=== PATIENT | female | born 1955 | race Caucasian/White ===

== ENCOUNTER 2019-02-08 21:32 | Inpatient (IN) ==
--- OUTSIDE RECORDS SUMMARY | 2019-02-08 21:35 | External Medical Summary | Continuity of Care Document ---
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 Silas Ortiz Start: 07-Sep-2014 Quantity: 90 Refills: 3 Vitamin C 500 MG Oral Capsule; TAKE 1 CAPSULE DAILYSilas Mcmanus Start: 07-Sep-2014 Refills: 0 Venlafaxine HCl ER 150 MG Oral Tablet Ex tended Release 24 Hour; Take 1 tablet daily Silas Fall Start: 18-Nov-2014 Quantity: 90 Refills: 3 Claritin 10 MG Oral Tablet; TAKE 1 TABLET AT BEDTIME. Silas Fall Start: 02-Nov-2016 Quantity: 30 Refills: 5 Procedures History of Gallbladder Surgery Status: C ompleted History of Eye Surgery Status: Completed History of Section Status: Comp leted History of Hernia Repair Status: Complet ed Immunizations Tdap (Adacel) On: Mar-2012 Family History Father Family history of liver cancer (V16.0) (Z80.0) Status: Activ e Mother Family history of hypertension (V17.49) (Z82.49) Status: Act antwon Family history of Emphysema/COPD (492.8) (J43.9) Status: Act antwon Brother Family history of hypertension (V17.49) (Z82.49) Status: Act antwon Family history of Diabetes mellitus, controlled (250.00) (E1 1.9) Status: Active Social History - Smoking Status Never smoker Plan of Treatment Planned Observations Planned Goals not documented Results No Known Results Results not documented
--- NOTE | 2019-02-08 22:07 | CT Scan Report ---
CT head/brain wo con CLINICAL HISTORY: Stroke evaluation RIGHT-SIDED FACIAL DROOP COMPARISON STUDY: No previous studies for comparison. TECHNIQUE: Axial CT of the brain is performed from the vertex to the skull base. IV contrast was not administered for this examination. A dose lowering technique was utilized adhering to the principles of ALARA. CT DOSE: 537.48 mGy.cm FINDINGS: No intra or extra-axial mass lesions are visualized. There is no CT evidence of acute cortical infarc tion. There is no evidence of midline shift. There is no acute hemorrhage. No calvarial fractures ar e visualized. There are mild white matter hypodensities likely on a small vessel basis. There is no evidence of pathologic ventricular dilatation. There is no evidence of acute sinusitis. There is a small calcified right globe with an overlying imp lant. IMPRESSION: No acute intracranial findings Electronically signed by: Larry Casillas M.D. 02/08/2019 10:05 PM
[2019-02-08 22:19] LABS: Basophils # (auto) 0.05 K/uL (0-0.2); Basophils % (auto) 0.7 %; Eosinophils # (auto) 0.06 K/uL (0-0.5); Eosinophils % (auto) 0.8 %; Hematocrit (blood only) 38.1 % (37-47); Hemoglobin 13.2 g/dL (12.0-16.0); Immature Granulocytes # (auto) 0.01 K/uL (0.00-0.02); Immature Granulocytes % (auto) 0.1 %; Lymphocytes # (auto) 2.72 K/uL (1.2-3.4); Lymphocytes % (auto) 36.7 %; Mean Corpuscular Hgb Conc 34.6 g/dL (32-36); Mean Platelet Volume 10.3 fL (7.4-10.4); Monocytes # (auto) 0.65 K/uL (0.11-0.59); Monocytes % (auto) 8.8 %; Neutrophils # (auto) 3.93 K/uL (1.4-6.5); Neutrophils % (auto) 52.9 %; Platelet Count 239 K/uL (130-400); RDW Coefficient of Variation 13.8 % (11.5-14.5); RDW Standard Deviation 44.9 fL (36.4-46.3); Red Blood Count 4.33 M/uL (4.2-5.4); White Blood Count 7.42 K/uL (4.8-10.8)
[2019-02-08 22:28] LABS: Prothrombin Time 9.9 Seconds (9.0-12.0)
[2019-02-08 22:36] LABS: Alanine Aminotransferase 18 U/L (12-78); Albumin Level 3.2 gm/dl (3.4-5.0); Aspartate Aminotransferase 12 U/L (15-37); BUN Creatinine Ratio 11.6 (10-20); Blood Urea Nitrogen 14 mg/dl (7-18); Calcium 8.9 mg/dl (8.5-10.1); Carbon Dioxide 24 mmol/L (21-32); Chloride 108 mmol/L (98-107); Creatinine Clr Calc Pharmacy 43.6 ml/min; Est GFR (African American) 54.1; Est GFR (Non-African American) 46.6; Glucose 87 mg/dl (70-99); Magnesium 2.1 mg/dl (1.8-2.4); Potassium 3.9 mmol/L (3.5-5.1); Sodium 139 mmol/L (136-145)
[2019-02-08 22:40] LABS: Albumin Globulin Ratio 0.9 (0.9-2); Alkaline Phosphatase 106 U/L (45-117); Bilirubin,Total 0.2 mg/dl (0.2-1); Globulin 3.6 gm/dl (2.5-4.0); Total Protein 6.8 gm/dl (6.4-8.2); Troponin I < 0.015 ng/ml (0-0.045)
[2019-02-09] MEDS ORDERED: ASPIRIN CHEW 324 MG PO STA (00:03)
--- NOTE | 2019-02-09 00:29 | Emergency Department Note ---
Entered by Claudette Blackburn acting as a scribe for Ventura Jones MD History of Present Illness General Chief complaint: Neuro Symptoms/Deficit Stated complaint: BODY TINGLES ALL OVER, DIZZINESS, Time Seen by Provider: 02/08/19 21:47 Source: patient Limitations: no limitations History of Present Illness Provider complaint: neuro symptoms/deficit Onset (ago): hour(s) 1 Location: head Radiation: extremity (right arm) and other (face) Associated symptoms: + other (+right arm numbness, +slurred speech); no chest pain and no shortness of breath The patient is a 63 year old female who presents to the Emergency Room with complaints of neuro symptoms/deficit that began 1 hour prior to arrival and her last time known well was 2055. The patient states that she was got up to get water and when she went back to sit down her whole body started tingling. The patient states that she has right arm numbness and slurred speech. The patient denies ant chest pain or shortness of breath. Per son, the patient's face was drooped when he initially saw her. The patient denies a history of stroke, diabetes, or blood clots. The patient states that she has a history of eye cancer. Home Medications Home Medications Medication Instructions Recorded Confirmed Type pravastatin 20 mg PO QAM 02/08/19 02/08/19 History venlafaxine 150 mg PO QAM 02/08/19 02/08/19 History Allergies Allergy/AdvReac Type Severity Reaction Status Date / Time No Known Allergies Allergy Unverified 02/08/19 22:00 Past Med/Surg History Medical History Eye cancer Hyperlipidemia MDD (major depressive disorder) Surgical History H/O section S/P cholecystectomy Family History Other Diabetes Hypertension Social History Feels Safe at Home: Yes Smoking Status: Never smoker Review of Systems See HPI for pertinent positives & negatives. and A total of 10 systems reviewed and were otherwise negative Physical Exam Vital Signs Vital Signs - 24 hr 02/08/19 21:35 02/08/19 22:06 02/08/19 22:07 Temperature 36.7 C 36.6 C Temperature Source Oral Oral Sepsis Recent Fever Within 48 Hours No Sepsis New/Unexplained Change in Mental Status No Sepsis Action Taken by Nursing No Action Required Pulse Rate 99 H Pulse Rate [Apical] 84 Pulse Rate from SpO2 Sensor Pulse Rhythm Regular Pulse Rhythm [Apical] Pulse Strength Normal Respiratory Rate 20 18 Respiratory Effort / Characteristics Non-Labored Spontaneous Respiratory Depth Normal Respiratory Pattern Regular Blood Pressure 141/93 H Blood Pressure [Right Arm] 103/72 Blood Pressure Mean 109 Blood Pressure Mean [Right Arm] 82 Pulse Oximetry 99 95 95 Oxygen Delivery Method Room Air Room Air Room Air 02/08/19 22:16 02/08/19 22:47 02/08/19 23:50 Temperature Temperature Source Sepsis Recent Fever Within 48 Hours Sepsis New/Unexplained Change in Mental Status Sepsis Action Taken by Nursing Pulse Rate 78 Pulse Rate [Apical] 79 80 Pulse Rate from SpO2 Sensor 80 Pulse Rhythm Pulse Rhythm [Apical] Regular Regular Pulse Strength Respiratory Rate 14 14 16 Respiratory Effort / Characteristics Non-Labored Respiratory Depth Normal Normal Respiratory Pattern Blood Pressure 118/99 Blood Pressure [Right Arm] 137/86 142/95 H Blood Pressure Mean 105 Blood Pressure Mean [Right Arm] 103 110 Pulse Oximetry 94 93 95 Oxygen Delivery Method Room Air Room Air Room Air 02/09/19 00:12 Temperature Temperature Source Sepsis Recent Fever Within 48 Hours Sepsis New/Unexplained Change in Mental Status Sepsis Action Taken by Nursing Pulse Rate Pulse Rate [Apical] 93 H Pulse Rate from SpO2 Sensor Pulse Rhythm Pulse Rhythm [Apical] Regular Pulse Strength Respiratory Rate 16 Respiratory Effort / Characteristics Respiratory Depth Normal Respiratory Pattern Blood Pressure Blood Pressure [Right Arm] 123/74 Blood Pressure Mean Blood Pressure Mean [Right Arm] 90 Pulse Oximetry 92 Oxygen Delivery Method Room Air General: Non-ill appearing middle-aged female in no acute distress. HEENT: Normal cephalic atraumatic. Pupils are equal round and reactive to light. Artificial right eye. Extraocular movements are intact. Oropharynx is pink with moist mucous membranes. Missing most of anterior upper teeth and does not have her plate with her. Some facial asymmetry from previous facial surgery. Neck: Supple with a midline trachea. No meningeal signs or stiffness, no JVD or bruits. No Stridor. Chest: Clear to auscultation bilaterally. No wheezes or rhonchi. No increased work of breathing. Heart: regular rate and rhythm. Abdomen: Soft nontender, nondistended without rebound guarding or rigidity. Extremities: No cyanosis clubbing or edema. No calf tenderness or asymmetry Spine/Back. Non tender to palpation. No CVA tenderness Skin: Good turgor without rashes. Neurologic exam: Cranial nerves two through 12 are intact. Motor and sensation are intact and symmetrical throughout. Course 2147: The patient was evaluated in room B2, and a complete history and physical examination were performed. 2199:I reviewed the patient's case with Dr. Young who states that he will come examine the patient but states that he does not believe the patient will be a TPA candidate due to the patient's symptoms. 2229: I checked on the patient and updated her on her results. The patient looks good and comfortable. 0001: [facility] for further hospitalization. Consultations Consultation #1: Dr. Merrill [facility] Hospitalist Time: 00:01 Administered Medications Discontinued Medications Aspirin (Aspirin) 324 mg PO NOW STA Stop: 02/09/19 00:04 Last Admin: 02/09/19 00:11 Dose: 324 mg Documented by: [id number] Medical Decision Making Differential Diagnosis Differential Diagnosis: TIA, CVA, electrolyte or metabolic abnormality, infection. Medical Records Attestation: I reviewed the patient's medical records. Home Medications Current Medication List: was personally reviewed by me Laboratory Data Attestation: I reviewed the patient's lab results. Result diagrams: 02/08/19 22:09 02/08/19 22:09 Lab Results 02/08/19 02/08/19 02/08/19 Range/Units 21:49 22:09 22:09 WBC 7.42 (4.8-10.8) K/uL RBC 4.33 (4.2-5.4) M/uL Hgb 13.2 (12.0-16.0) g/dL Hct 38.1 (37-47) % MCV 88.0 (80-100) fL MCH 30.5 (25-34) pg MCHC 34.6 (32-36) g/dL RDW Std Deviation 44.9 (36.4-46.3) fL RDW Coeff of Melissa 13.8 (11.5-14.5) % Plt Count 239 (130-400) K/uL MPV 10.3 (7.4-10.4) fL Immature Gran % (Auto) 0.1 % Neut % (Auto) 52.9 % Lymph % (Auto) 36.7 % [place] % (Auto) 8.8 % Eos % (Auto) 0.8 % Baso % (Auto) 0.7 % Immature Gran # (Auto) 0.01 (0.00-0.02) K/uL Neut # (Auto) 3.93 (1.4-6.5) K/uL Lymph # (Auto) 2.72 (1.2-3.4) K/uL [place] # (Auto) 0.65 H (0.11-0.59) K/uL Eos # (Auto) 0.06 (0-0.5) K/uL Baso # (Auto) 0.05 (0-0.2) K/uL PT 9.9 (9.0-12.0) Seconds INR 1.0 (0.9-1.1) APTT 26.0 (21.0-31.0) Seconds PTT Ratio 1.0 Sodium (136-145) mmol/L Potassium (3.5-5.1) mmol/L Chloride (98-107) mmol/L Carbon Dioxide (21-32) mmol/L Anion Gap (3-11) BUN (7-18) mg/dl Creatinine (0.6-1.2) mg/dl Est Cr Clr Drug Dosing ml/min Est GFR ( Amer) Est GFR (Non-Af Amer) BUN/Creatinine Ratio (10-20) Glucose (70-99) mg/dl POC Glucose 82 (70-99) Calcium (8.5-10.1) mg/dl Magnesium (1.8-2.4) mg/dl Total Bilirubin (0.2-1) mg/dl AST (15-37) U/L ALT (12-78) U/L Alkaline Phosphatase (45-117) U/L Troponin I (0-0.045) ng/ml Total Protein (6.4-8.2) gm/dl Albumin (3.4-5.0) gm/dl Globulin (2.5-4.0) gm/dl Albumin/Globulin Ratio (0.9-2) Blood Type Antibody Screen 02/08/19 02/08/19 Range/Units 22:09 22:09 WBC (4.8-10.8) K/uL RBC (4.2-5.4) M/uL Hgb (12.0-16.0) g/dL Hct (37-47) % MCV (80-100) fL MCH (25-34) pg MCHC (32-36) g/dL RDW Std Deviation (36.4-46.3) fL RDW Coeff of Melissa (11.5-14.5) % Plt Count (130-400) K/uL MPV (7.4-10.4) fL Immature Gran % (Auto) % Neut % (Auto) % Lymph % (Auto) % [place] % (Auto) % Eos % (Auto) % Baso % (Auto) % Immature Gran # (Auto) (0.00-0.02) K/uL Neut # (Auto) (1.4-6.5) K/uL Lymph # (Auto) (1.2-3.4) K/uL [place] # (Auto) (0.11-0.59) K/uL Eos # (Auto) (0-0.5) K/uL Baso # (Auto) (0-0.2) K/uL PT (9.0-12.0) Seconds INR (0.9-1.1) APTT (21.0-31.0) Seconds PTT Ratio Sodium 139 (136-145) mmol/L Potassium 3.9 (3.5-5.1) mmol/L Chloride 108 H (98-107) mmol/L Carbon Dioxide 24 (21-32) mmol/L Anion Gap 8.0 (3-11) BUN 14 (7-18) mg/dl Creatinine 1.23 H (0.6-1.2) mg/dl Est Cr Clr Drug Dosing 43.6 ml/min Est GFR ( Amer) 54.1 Est GFR (Non-Af Amer) 46.6 BUN/Creatinine Ratio 11.6 (10-20) Glucose 87 (70-99) mg/dl POC Glucose (70-99) Calcium 8.9 (8.5-10.1) mg/dl Magnesium 2.1 (1.8-2.4) mg/dl Total Bilirubin 0.2 (0.2-1) mg/dl AST 12 L (15-37) U/L ALT 18 (12-78) U/L Alkaline Phosphatase 106 (45-117) U/L Troponin I < 0.015 (0-0.045) ng/ml Total Protein 6.8 (6.4-8.2) gm/dl Albumin 3.2 L (3.4-5.0) gm/dl Globulin 3.6 (2.5-4.0) gm/dl Albumin/Globulin Ratio 0.9 (0.9-2) Blood Type A Positive Antibody Screen NEGATIVE Imaging Data Radiologist's Impression: Radiology results as stated below per my review and the radiologist's interpretation: CT head/brain wo con CLINICAL HISTORY: Stroke evaluation RIGHT-SIDED FACIAL DROOP COMPARISON STUDY: No previous studies for comparison. TECHNIQUE: Axial CT of the brain is performed from the vertex to the skull base. IV contrast was not administered for this examination. A dose lowering technique was utilized adhering to the principles of ALARA. CT DOSE: 537.48 mGy.cm FINDINGS: No intra or extra-axial mass lesions are visualized. There is no CT evidence of acute cortical infarction. There is no evidence of midline shift. There is no acute hemorrhage. No calvarial fractures are visualized. There are mild white matter hypodensities likely on a small vessel basis. There is no evidence of pathologic ventricular dilatation. There is no evidence of acute sinusitis. There is a small calcified right globe with an overlying implant. IMPRESSION: No acute intracranial findings Electronically signed by: Larry Casillas M.D. 02/08/2019 10:05 PM ECG Data Attestation: I personally reviewed and interpreted this ECG as follows: Indication: other (stroke symptoms ) Rate (beats per minute): 83 Rhythm: normal sinus Findings: + other (low voltage) and + nonspecific-ST abn; no ST elevation and no acute ischemic change Blood Pressure Blood Pressure Findings: Normal blood pressure MDM Narrative This patient comes in as described above. She had an episode of symptoms about 1 hour prior to arrival where she felt tingling all over she also may have some numbness in her arm and family thought she may have had a facial droop and slurred speech. There is no word finding problems. She has gotten significantly better. They were not 100% sure if she is back at baseline and I did call a stroke alert. It is difficult to assess her because she does not have her partial dentures and she thinks this is how she talks without them. She has also had facial surgery with her right I removed so she does have some asymmetry to begin with. CAT scan of her head is unremarkable. EKG does not show any definite acute ischemic changes or significant arrhythmia. She has no significant electrolyte or metabolic abnormalities. She was feeling better. I did have the stroke neurologist look at her as well she does not feel she is a TPA candidate as her symptoms have gotten better. I do think she may have had a TIA she is also a lot of stress lately with her mother couple days ago and that could be playing a role here as well. I do think she needs a further neurologic work-up and have asked Dr. Kong to see her for admission. Impression & Plan History of TIA (transient ischemic attack), Dysarthria Discharge Plan Visit Data Chief Complaint: Neuro Symptoms/Deficit Stated Complaint: BODY TINGLES ALL OVER, DIZZINESS, ED Provider: Ventura Jones Discharge Problem: History of TIA (transient ischemic attack), Dysarthria Patient Disposition: Being Evaluated by Hospitalist Forms Stand Alone Forms: My [facility] Prescriptions Prescriptions: No Action venlafaxine 150 mg capsule,extended release 24hr 150 mg PO QAM RF: 0 pravastatin 20 mg tablet 20 mg PO QAM RF: 0 Referrals Referrals: Merissa Vasquez CRNP [Primary Care Provider] - The scribe's documentation has been prepared under my direction and personally reviewed by me in its entirety. I confirm that the note above accurately refle cts all work, treatment, procedures, and medical decision making performed by me.
--- NOTE | 2019-02-09 00:51 | History & Physical Report ---
Date of Service February 09, 2019 Assessment & Plan (1) Stroke-like episode: Brief episode of dysarthria, RUE numbness and facial droop. Symptoms have resolved entirely. Patient hemodynamically stable, unremarkable neurological exam -Admit to medical floor -Check lipids, HgAIC -Check MRI, MRA head and neck -Check 2D echo -Neurology consultation -Start ASA 81mg po daily -Continue Pravastatin 20mg po daily Present on Admission?: Yes (2) Hyperlipidemia: As above -Check lipids -Pravastatin 20mg po daily F/E/N - Heplock. Electrolytes within normal limits. Heart healthy diet when dysphagia screen passed Ppx - SCDs Code - DNR per discussion with patient Dispo - PCU History of Present Illness Chief Complaint: stroke-like symptoms Primary Care Provider: TOMASZ Villar Chastity Valenzuela is a pleasant 63yo C female with history of HLP presenting with stroke-like symptoms. Patient states that this evening around 21:00 patient walked out to the kitchen to get a drink of water. When she sat back down she "felt funny." States that her whole body felt tingly. reports that she also had slurred speech and a right facial droop at this time. Patient also with left arm weakness. Symptoms lasted only a few minutes then resolved spontaneously. She denies headache, visual changes, chest pain, palpitations, SOB. No recent illnesses. She has had increased stress in her life of late as her mother recently . Patient and her brother found her in her home. . Patient presented to [facility] as a "Code Stroke". No indication for tPA given resolution of symptoms and low NIHSS. ER Course: ASA 324mg Allergies Allergy/AdvReac Type Severity Reaction Status Date / Time No Known Allergies Allergy Unverified 02/08/19 22:00 Home Medications Home Medications Medication Instructions Recorded Confirmed Type pravastatin 20 mg PO QAM 02/08/19 02/08/19 History venlafaxine 150 mg PO QAM 02/08/19 02/08/19 History Past Med/Surg History Medical History Eye cancer Hyperlipidemia MDD (major depressive disorder) Surgical History H/O section S/P cholecystectomy Family History Other Diabetes Hypertension Social History Feels Safe at Home: Yes Smoking Status: Never smoker Review of Systems Review of Systems: All systems reviewed & are unremarkable except as noted in HPI & below Physical Exam Physical Exam: General: patient resting comfortably, NAD, non-toxic in appearance, AA&O x 4, very pleasant and conversational Skin: warm, dry, intact, no rashes or lesions HEENT: NC/AT, patient with right prosthetic eye, left pupil round and reactive to light, EOMI on left and limited on right, anicteric sclera, conjunctiva without injection, external ear normal to inspection and nontender, nares p atent, moist mucus membranes, poor dentition - patient wears a partial but does not have it in place, no oropharyngeal lesions, neck supple, trachea midline, no LAD, no thyromegaly, no JVD Heart: +S1/S2, regular, no m/r/g Lungs: equal air entry bilaterally, no rales/rhonchi/wheezes Abd: +BS, soft, NT/ND, no masses/organomegaly/ascites Ext: warm, 2+ pulses in UE/LE bilaterally, no clubbing/cyanosis or edema Neuro: CN II-XII intact, AA&O x 4, speech intact, no facial asymmetry, sensation to light touch intact in UE/LE bilaterally, MS 5/5 in UE/LE bilaterally, no dysmetria, gait intact Results & Data Vital Signs (Past 12 Hours) Vital Signs Temp Pulse Pulse Resp BP BP Pulse Ox 02/09/19 00:12 93 H 16 123/74 92 02/08/19 23:50 80 16 142/95 H 95 02/08/19 22:47 79 14 137/86 93 02/08/19 22:16 78 14 118/99 94 02/08/19 22:07 95 02/08/19 22:06 36.6 C 84 18 103/72 95 02/08/19 21:35 36.7 C 99 H 20 141/93 H 99 Laboratory Results Lab Results 02/08/19 02/08/19 02/08/19 Range/Units 21:49 22:09 22:09 WBC 7.42 (4.8-10.8) K/uL RBC 4.33 (4.2-5.4) M/uL Hgb 13.2 (12.0-16.0) g/dL Hct 38.1 (37-47) % MCV 88.0 (80-100) fL MCH 30.5 (25-34) pg MCHC 34.6 (32-36) g/dL RDW Std Deviation 44.9 (36.4-46.3) fL RDW Coeff of Melissa 13.8 (11.5-14.5) % Plt Count 239 (130-400) K/uL MPV 10.3 (7.4-10.4) fL Immature Gran % (Auto) 0.1 % Neut % (Auto) 52.9 % Lymph % (Auto) 36.7 % [place] % (Auto) 8.8 % Eos % (Auto) 0.8 % Baso % (Auto) 0.7 % Immature Gran # (Auto) 0.01 (0.00-0.02) K/uL Neut # (Auto) 3.93 (1.4-6.5) K/uL Lymph # (Auto) 2.72 (1.2-3.4) K/uL [place] # (Auto) 0.65 H (0.11-0.59) K/uL Eos # (Auto) 0.06 (0-0.5) K/uL Baso # (Auto) 0.05 (0-0.2) K/uL PT 9.9 (9.0-12.0) Seconds INR 1.0 (0.9-1.1) APTT 26.0 (21.0-31.0) Seconds PTT Ratio 1.0 Sodium (136-145) mmol/L Potassium (3.5-5.1) mmol/L Chloride (98-107) mmol/L Carbon Dioxide (21-32) mmol/L Anion Gap (3-11) BUN (7-18) mg/dl Creatinine (0.6-1.2) mg/dl Est Cr Clr Drug Dosing ml/min Est GFR ( Amer) Est GFR (Non-Af Amer) BUN/Creatinine Ratio (10-20) Glucose (70-99) mg/dl POC Glucose 82 (70-99) Calcium (8.5-10.1) mg/dl Magnesium (1.8-2.4) mg/dl Total Bilirubin (0.2-1) mg/dl AST (15-37) U/L ALT (12-78) U/L Alkaline Phosphatase (45-117) U/L Troponin I (0-0.045) ng/ml Total Protein (6.4-8.2) gm/dl Albumin (3.4-5.0) gm/dl Globulin (2.5-4.0) gm/dl Albumin/Globulin Ratio (0.9-2) Blood Type Antibody Screen 02/08/19 02/08/19 Range/Units 22:09 22:09 WBC (4.8-10.8) K/uL RBC (4.2-5.4) M/uL Hgb (12.0-16.0) g/dL Hct (37-47) % MCV (80-100) fL MCH (25-34) pg MCHC (32-36) g/dL RDW Std Deviation (36.4-46.3) fL RDW Coeff of Melissa (11.5-14.5) % Plt Count (130-400) K/uL MPV (7.4-10.4) fL Immature Gran % (Auto) % Neut % (Auto) % Lymph % (Auto) % [place] % (Auto) % Eos % (Auto) % Baso % (Auto) % Immature Gran # (Auto) (0.00-0.02) K/uL Neut # (Auto) (1.4-6.5) K/uL Lymph # (Auto) (1.2-3.4) K/uL [place] # (Auto) (0.11-0.59) K/uL Eos # (Auto) (0-0.5) K/uL Baso # (Auto) (0-0.2) K/uL PT (9.0-12.0) Seconds INR (0.9-1.1) APTT (21.0-31.0) Seconds PTT Ratio Sodium 139 (136-145) mmol/L Potassium 3.9 (3.5-5.1) mmol/L Chloride 108 H (98-107) mmol/L Carbon Dioxide 24 (21-32) mmol/L Anion Gap 8.0 (3-11) BUN 14 (7-18) mg/dl Creatinine 1.23 H (0.6-1.2) mg/dl Est Cr Clr Drug Dosing 43.6 ml/min Est GFR ( Amer) 54.1 Est GFR (Non-Af Amer) 46.6 BUN/Creatinine Ratio 11.6 (10-20) Glucose 87 (70-99) mg/dl POC Glucose (70-99) Calcium 8.9 (8.5-10.1) mg/dl Magnesium 2.1 (1.8-2.4) mg/dl Total Bilirubin 0.2 (0.2-1) mg/dl AST 12 L (15-37) U/L ALT 18 (12-78) U/L Alkaline Phosphatase 106 (45-117) U/L Troponin I < 0.015 (0-0.045) ng/ml Total Protein 6.8 (6.4-8.2) gm/dl Albumin 3.2 L (3.4-5.0) gm/dl Globulin 3.6 (2.5-4.0) gm/dl Albumin/Globulin Ratio 0.9 (0.9-2) Blood Type A Positive Antibody Screen NEGATIVE Diagnostic Findings CT head/brain wo con CLINICAL HISTORY: Stroke evaluation RIGHT-SIDED FACIAL DROOP COMPARISON STUDY: No previous studies for comparison. TECHNIQUE: Axial CT of the brain is performed from the vertex to the skull base. IV contrast was not administered for this examination. A dose lowering technique was utilized adhering to the principles of ALARA. CT DOSE: 537.48 mGy.cm FINDINGS: No intra or extra-axial mass lesions are visualized. There is no CT evidence of acute cortical infarction. There is no evidence of midline shift. There is no acute hemorrhage. No calvarial fractures are visualized. There are mild white matter hypodensities likely on a small vessel basis. There is no evidence of pathologic ventricular dilatation. There is no evidence of acute sinusitis. There is a small calcified right globe with an overlying implant. IMPRESSION: No acute intracranial findings Electronically signed by: Larry Casillas M.D. 02/08/2019 10:05 PM Dictated: 02/08/192203 Transcribed: 02/08/192203 ECG Additional Comments: NSR at 83bpm, leftward axis, QW=341, QRS=74, HBn=286, possible old inferior infarct with q-waves, nonspecific t wave changes anteriorly Code Status & VTE Plan Code Status DNR/DNI per discussion with patient
[2019-02-09] MEDS ORDERED: GADOBUTROL 65ML VIAL IV PRN (05:14)
[2019-02-09 06:16] LABS: Estimated Average Glucose 114 mg/dl; Hemoglobin A1C 5.6 % (4.5-5.6)
[2019-02-09 06:22] LABS: Chol HDL Ratio 3; Cholesterol 162 mg/dl (0-200); HDL Cholesterol 58 mg/dl; LDL Cholesterol Calculated 81 mg/dl; Triglycerides 117 mg/dl (0-150); VLDL Cholesterol 23 mg/dl
--- NOTE | 2019-02-09 06:41 | Magnetic Resonance Report ---
MR brain wo/w con CLINICAL HISTORY: possible stroke mental status change COMPARISON STUDY: No previous studies for comparison. TECHNIQUE: Utilizing a 1.5 Cecily magnet and dedicated coil, multiplanar, multiecho imaging of the br ain was performed pre and postcontrast administration. IV administration of 8 mL of Gadavist contras t was uneventful. FINDINGS: Perfusion images demonstrate a very small cortical infarct right superior temporal lobe emerald suring 5 mm at maximum. Findings of multiple foci of increased signal in the periventricular deep whi te matter regions. This is highly suggestive of small vessel change. IMPRESSION: 1. Very small cortical infarct right superior temporal lobe. 2. Considerable chronic small vessel change throughout both cerebral hemispheres. The above report was generated using voice recognition software. It may contain grammatical, syntax or spelling errors. Electronically signed by: Alfa Willams M.D. 02/09/2019 6:40 AM
[2019-02-09] MEDS ORDERED: PERFLUTREN LIPID MICROSPHERE (DEFINITY) IV ONE (07:11)
--- NOTE | 2019-02-09 07:13 | Magnetic Resonance Report ---
MRA OF THE NECK WITH AND WITHOUT CONTRAST CLINICAL HISTORY: Slurred speech. Possible stroke. COMPARISON STUDY: No previous studies for comparison. TECHNIQUE: Unenhanced and contrast-enhanced MRA of the neck was performed. Intravenous injection of 7 .8 cc of Gadavist was uneventful. FINDINGS: No stenosis is identified within the bilateral common carotid or cervical internal carotid arteries. The left vertebral artery is diminutive and suboptimally assessed on this exam. This is lik svitlana chronic and may be congenital. The right vertebral artery is dominant and patent. IMPRESSION: 1. No stenosis within the bilateral cervical internal carotid and common carotid arteries. 2. Diminutive left vertebral artery which is suboptimally assessed on this exam. This is likely chron ic and may be congenital. Patent right vertebral artery. Electronically signed by: Donnell Wilhelm M.D. 02/09/2019 7:11 AM
--- NOTE | 2019-02-09 07:13 | Magnetic Resonance Report ---
Brain MRA HISTORY: Slurred speech. possible stroke TECHNIQUE: 3-D [id number] MRA of the brain was performed without contrast. COMPARISON STUDY: None. FINDINGS: Visualized intracranial internal carotid arteries, distal vertebral arteries, and basilar a rtery are widely patent. There is no significant stenosis, occlusion, or aneurysm seen within the dutch ateral ACAs, MCAs, or poolroom table attendant. The distal vertebral arteries and basilar artery are hypoplastic. Persist ent right posterior circulation. The left vertebral artery likely terminates into the left post erior inferior cerebellar artery. These are considered to be normal variants. IMPRESSION: No significant stenosis, occlusion, or aneurysm within the kaw of Raymond. Hypoplastic posterior ci rculation as described above. Electronically signed by: Pedro Whitney M.D. 02/09/2019 7:11 AM
--- NOTE | 2019-02-09 08:18 | Neurology Consultation ---
Date of Consultation February 09, 2019 Assessment & Plan (1) Acute CVA (cerebrovascular accident): Patient had the acute onset of whole body tingling with some dysarthria and a presumed right facial droop. The symptoms cleared rapidly and by 1 hour she was back to normal. MRI of the brain shows a tiny acute right superior temporal CVA. This would not explain the left facial droop (if it was in the present) or whole body tingling. It might explain some brief dysarthria however. MRI also shows mild to moderate old small vessel ischemic disease and risk factors for stroke include dyslipidemia and elevated blood pressure. She has no history of diabetes cigarettes. Clinically, her neurologic examination is nonfocal and she has no meningeal signs or encephalopathy. She is essentially back to baseline clinically Recommendations: 1. Continue 81 mg aspirin daily 2. Control blood pressure as you are doing keeping mean arterial pressure between 95 and 100 if possible. 3. Continue statin at the current dose. I do not believe she needs a higher dose statin. 4. Increase activity 5. Awaiting echocardiogram results Please contact me if I can be of further assistance on this case. I can follow this patient as an outpatient if desired. Overall, I spent a total of 90 minutes with this case including review of records, review of MRI films, direct evaluation the patient at bedside, and discussion of the case with the patient at bedside, clinical staff, and Dr. Wharton regarding differential diagnosis and treatment options. Greater than 50% of this total appointment was spent counseling the patient regarding differential diagnosis and treatment options. History of Present Illness Reason for Consultation: Patient is a 63-year-old, who was asked to see the request of Dr. Kong, for neurologic consultation regarding stroke Requesting Physician: Dr. Kong Attending Physician: Beth Kong, History of Present Illness This patient has a history of dyslipidemia and is currently on pravastatin. She denies any history of hypertension, diabetes, heart disease. She has never had a stroke before and has no history of significant or frequent migraines. She has a history of depression fairly well controlled on venlafaxine. 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 She was doing well with no illness and had a good day February 08. She went out to eat at [employer] [place] a headache your in the afternoon, and had dinner at her son's house around 530. She and her went home and were relaxing when around few minutes before 9 o'clock she got up to get a drink of water. Her whole body had the sudden onset of unusual tingling including face body arms and legs bilaterally symmetrically lasting couple of seconds. There was no alteration in consciousness and she did not have any problems with balance. Her noted a right facial droop and some slurred speech. Patient did not really notice this. She did not feel weak and had no pain. She was breathing well and had no new vision problems. She was not confused. She felt that the worst of the symptoms lasted about 15 minutes and then resolved. Her family convinced her to come to the emergency room. On February 08 she arrived at 2135 with a temperature 36.7, pulse 99 and regular, respiratory rate 20, blood pressure 141/93, and O2 saturation 99%. Neurologic examination was unremarkable and she had no focal deficits. She had no further symptoms or deficits. CT scan of the head showed no acute changes. CBC and Chem profile were unremarkable. Triglyceride was 117, cholesterol 162, LDL 81. MRI of the brain showed a tiny right acute superior temporal stroke. There was [id number] scattered old small vessel ischemia in the deep white matter bilaterally. MR angiography of the head neck were largely unremarkable in that there were no stenoses or significant vessel anomalies but she did have some congenital/persistent circulation posteriorly, with a minimal left vertebral artery distally and a predominant right vertebral. These were all variants of normal. Patient did well overnight and blood pressure this morning was 143/80. She has had no new symptoms. Nursing reports no new issues Allergies Allergy/AdvReac Type Severity Reaction Status Date / Time No Known Allergies Allergy Unverified 02/08/19 22:00 Home Medications Home Medications Medication Instructions Recorded Confirmed Type pravastatin 20 mg PO QAM 02/08/19 02/08/19 History venlafaxine 150 mg PO QAM 02/08/19 02/08/19 History Patient History Medical History Eye cancer Hyperlipidemia MDD (major depressive disorder) Surgical History H/O section H/O umbilical hernia repair S/P cholecystectomy Family History Mother , Mother age 81 of cardiac conditions. 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 Ear, Nose, Mouth, Throat: no ear pain, no tinnitus, no hearing loss and no dysphagia Respiratory: no cough and no dyspnea Cardiovascular: no chest pain, no dyspnea and no palpitations Gastrointestinal: no abdominal pain, no nausea and no vomiting Genitourinary: no dysuria, no urinary frequency and no urinary incontinence Musculoskeletal: no back pain, no neck pain, no radicular pain, no myalgia, no muscle weakness and no muscle atrophy Integumentary: no rash and no lesions Neurologic: no gait abnormality, no falls, no localized weakness, no generalized weakness, no tingling, no numbness, no tremor(s), no abnormal movements, no dizziness, no headache(s), no abnormal speech, no behavioral changes, no confusion and no memory loss Psychiatric: no depression, no abnormal sleep pattern, no anxiety, no difficulty concentrating, no confusion and no hallucinations Endocrine: no fatigue and no flushing Hematologic / Lymphatic: no easy bleeding and no easy bruising Allergy / Immunological: no urticaria Physical Exam Physical Exam: The patient is left-handed. The patient is awake, alert, and attentive. Speech is normal without any aphasia or dysarthria. Mentation and thought processes are intact, with full orientation and normal fund of knowledge. Attention and concentration are normal. Mood and affect are normal and appropriate. General appearance and grooming are normal. Short and long-term memory are intact. The disc is sharp on the left, with positive venous pulsations. The right eye is glass. There are no exudates, hemorrhages, or blood vessel changes seen. Left Pupil is 4 mm and reactive to light. Extraocular eye muscles are intact without nystagmus in the left eye. Right eye has some minor mirror movements at times but mostly does not move. Visual acuity and visual rodriguez seem normal grossly to confrontation on the left. There are no deficits to sensation in the face in all 3 distributions of the fifth cranial nerve bilaterally. Corneal reflexes are positive bilaterally. Facial strength and symmetry was normal bilaterally. Hearing seems intact grossly to voice and finger rub bilaterally. She has poor dentition. Palate moves well without asymmetry. There is normal sternocleidomastoid and trapezius (shoulder shrug) strength bilaterally. Tongue is midline with good strength bilaterally. Neck has a full range of motion without discomfort. There are no cervical bruits bilaterally. There are no cranial or ocular bruits. Heart is without murmur. There is a regular rhythm and rate. Cervical, thoracic, and lumbar spine are nontender to palpation. Gait is narrow based, with good arm swing, turns, and stance. Balance is normal eyes open or closed. The patient can tandem walk without difficulty. The kameron ent can heal and toe walk normally. With outstretched arms there is no drift. There are no resting, postural, or action tremors. There is no ataxia with finger to nose testing. There is good facility in the hands. No other abnormal involuntary movements are noted. Motor strength is 5/5 diffusely in the arms bilaterally including deltoids, biceps, triceps, brachioradialis, wrist flexors and extensors, competitive athlete, and intrinsic hand muscles. Motor strength is 5/5 diffusely in the legs bilaterally including hip flexors, quadriceps, hamstrings, gastrocnemius, tibialis anterior, tibialis posterior, and Peroneii muscles bilaterally. Toe extensors are normal and there is good bulk in the extensor digitorum brevis muscles bilaterally. The limbs have good tone without rigidity or spasticity. There is no atrophy noted in the muscles. Muscle bulk is normal, there is no tenderness to palpation, no myotonia to percussion, and no fasciculations seen. Sensory examination is intact to touch and pin throughout all 4 limbs diffusely. She has no sensory deficits. Reflexes are 2/4 in the biceps, triceps, brachioradialis, and quadriceps tendons bilaterally. Achilles tendon reflexes are absent bilaterally. Toes are downgoing with plantar stimulation bilaterally. Peripheral pulses are present and of normal quality distally in all 4 limbs. There is no peripheral edema noted in the limbs. Results & Data Vital Signs (Past 12 Hours) Vital Signs Temp Pulse Pulse Resp BP BP BP 05/13/19 06:46 36.8 C 74 20 143/86 H 02/09/19 02:16 36.2 C L 77 16 166/87 H 02/09/19 01:47 78 16 137/90 02/09/19 00:50 77 16 02/09/19 00:12 93 H 16 123/74 02/08/19 23:50 80 16 142/95 H 02/08/19 22:47 79 14 137/86 02/08/19 22:16 78 14 118/99 02/08/19 22:07 02/08/19 22:06 36.6 C 84 18 103/72 02/08/19 21:35 36.7 C 99 H 20 141/93 H Pulse Ox 02/09/19 06:46 93 02/09/19 02:16 95 02/09/19 01:47 94 02/09/19 00:50 94 02/09/19 00:12 92 02/08/19 23:50 95 02/08/19 22:47 93 02/08/19 22:16 94 02/08/19 22:07 95 02/08/19 22:06 95 02/08/19 21:35 99 Diagnostic Findings MR brain wo/w con CLINICAL HISTORY: possible stroke mental status change COMPARISON STUDY: No previous studies for comparison. TECHNIQUE: Utilizing a 1.5 Cecily magnet and dedicated coil, multiplanar, multiecho imaging of the brain was performed pre and postcontrast administration. IV administration of 8 mL of Gadavist contrast was uneventful. FINDINGS: Perfusion images demonstrate a very small cortical infarct right superior temporal lobe measuring 5 mm at maximum. Findings of multiple foci of increased signal in the periventricular deep white matter regions. This is highly suggestive of small vessel change. IMPRESSION: 1. Very small cortical infarct right superior temporal lobe. 2. Considerable chronic small vessel change throughout both cerebral hemispheres. The above report was generated using voice recognition software. It may contain grammatical, syntax or spelling errors. Electronically signed by: Alfa Willams M.D. 02/09/2019 6:40 AM
[2019-02-09] MEDS ORDERED: PRAVASTATIN SOD 20 MG TAB PO SCH (09:00)
[2019-02-09] MEDS ORDERED: VENLAFAXINE HCL XR 150 MG CAPXR PO SCH (09:00)
[2019-02-09] MEDS ORDERED: ASPIRIN 81 MG ECTAB PO SCH (09:00)
[2019-02-09] MEDS ORDERED: CONSULT PHARMACY STA (11:43)
[2019-02-09] MEDS ORDERED: STROKE PATIENT DISCHARGE PRN (11:48)
--- NOTE | 2019-02-09 13:29 | Pharmacy Report ---
Pharmacist Stroke Counseling - Date of Service February 09, 2019 - Scope: Pharmacy has been consulted to provide medication discharge counseling for this patient admitted with [ischemic stroke] [hemorrhagic stroke] [transient ischemic attack] as per the Pharmacist Discharge Counseling for Stroke Patients Protocol . - Medications on Discharge: Home Medications Medication Instructions Recorded Confirmed venlafaxine 150 mg PO QAM 02/08/19 02/08/19 New Rx's Medication Instructions Recorded aspirin [Ecotrin Low Strength] 81 mg PO QAM #90 tab 02/09/19 atorvastatin 40 mg PO DAILY #60 tab 02/09/19 - Action: The above medications, specifically ones for stroke treatment/prophylaxis, have been reviewed in detail with the patient and/or patient primary care sales representative(s) prior to discharge. This includes indication, common adverse reactions, drug interactions, and medication administration. Medication counseling has been employed using the teach-back method to ensure understanding. - Outcome: The patient and/or patient primary care sales representative(s) have demonstrated understanding of the medications. Please note, they are aware that the pharmacist will call them within 72 hours post-discharge to confirm that the appropriate medications are being taken and answer any further medication related questions the patient might have at that time. Contact information Individual to be contacted: Patient (Chastity) Relationship to patient (if applicable): n/a Phone number: [phone] Best time to call: No specific time Additional comments: Ms. Valenzuela was very pleasant to speak with today. We discussed the change in her statin from pravastatin to atorvastatin, addition of aspirin daily, side effects and administration. She did not have any other questions at this time. Thank you for allowing pharmacy to be involved in the care of this patient. Please call [phone] or [phone] with any additional questions
--- NOTE | 2019-02-09 19:02 | Discharge Summary ---
Date of Service February 09, 2019 Admission HPI Per Admitting Provider Chastity Valenzuela is a pleasant 63yo C female with history of HLP presenting with stroke-like symptoms. Patient states that this evening around 21:00 patient walked out to the kitchen to get a drink of water. When she sat back down she "felt funny." States that her whole body felt tingly. reports that she also had slurred speech and a right facial droop at this time. Patient also with left arm weakness. Symptoms lasted only a few minutes then resolved spontaneously. She denies headache, visual changes, chest pain, palpitations, SOB. No recent illnesses. She has had increased stress in her life of late as her mother recently . Patient and her brother found her in her home. . Patient presented to [facility] ER as a "Code Stroke". No indication for tPA given resolution of symptoms and low NIHSS. ER Course: ASA 324mg Principal Diagnosis subacute stroke Discharge Exam The patient appeared well nourished and normally developed. Vital signs as documented. Head exam is unremarkable. normocephalic, atraumatic baseline strabismus Neck is without jugular venous distension, thyromegaly, or lymphademopathy Lungs are clear to auscultation and percussion. Cardiac exam reveals Rhythm is regular. First and second heart sounds normal. Abdominal exam reveals normal bowel sounds, no masses, no organomegaly Extremities are nonedematous and both pedal pulses are present Neurologic exam is A&Ox3, Psychologically seems neither anxious or depressed Skin is warm Dry without bruises or lesions Discharge Data Allergies Allergy/AdvReac Type Severity Reaction Status Date / Time No Known Allergies Allergy Unverified 02/08/19 22:00 Consultations 02/08/19 23:59 ED Decision to Admit Stat 02/09/19 02:18 Consult Case Management - Discharge Planning Routine Consult Neurology Routine Ordered Studies 02/08/19 21:56 CT head/brain wo con Stat 02/09/19 02:18 MR angio head wo con Urgent MR angio neck wo/w con Routine MR brain wo/w con Routine Hospital Course (1) Stroke-like episode: Brief episode of dysarthria, RUE numbness and facial droop. Symptoms have resolved entirely. Patient hemodynamically stable, unremarkable neurological exam outside of baseline strabismus MRI of the brain Very small cortical infarct right superior temporal lobe. Considerable chronic small vessel change throughout both cerebral hemispheres. -Echo with preserved EF, no shunt or significant valvular disease -Neurology consultation recommend ASA 81mg po daily transition of Pravachol the high potency statin patient was counseled and agrees - (2) Hyperlipidemia: Atorvastatin 40 Code - DNR per discussion with patient Discharge Plan Discharge Items Patient Disposition: Home - Self-Care Reason For Visit: STROKE-LIKE SYMPTOMS Discharge Diagnosis: small stroke Discharge Goals: Decrease discomfort, Diagnostic testing and Improve disease control Activity: Resume your previous activity Non-emergency contact: Primary Care Provider Call non-emergency contact if: you have any medication questions Follow-up/Referrals: Merissa Vasquez CRNP [Primary Care Provider] - Diet: Heart Healthy Addtl Provider Instructions: please follow up with primary care in one week Prescriptions: New aspirin [Ecotrin Low Strength] 81 mg Tablet,Delayed Release (Dr/Ec) 81 mg PO QAM Qty: 90 RF: 3 atorvastatin 40 mg tablet 40 mg PO DAILY Qty: 60 RF: 6 Continued venlafaxine 150 mg capsule,extended release 24hr 150 mg PO QAM RF: 0 Discontinued pravastatin 20 mg tablet 20 mg PO QAM RF: 0 Stand-Alone Forms: Medications to Prevent Stroke, Replaced By [facility] Discharge Orders: Discharge Order (Routine); Ordered 02/09/19 Ordered By: Fausto Wharton Admission Data Admit Date/Time: 02/09/19 00:36 Attending Provider: Fausto Wharton Admit Provider: Beth Kong Primary Care Provider: Merissa Vasquez Other Providers: Beth Kong ; Ventura Olivas Emile Pierre III ; Kandi Nick ; Tammi Jon ; Derek Vega Service: Telemetry Other Interventions: Discharge Summary Assessment (RN) Last Done: 02/09/19 12:24 DC Date/Time DO NOT enter until pt leaves facility: 02/09/19 13:29
--- NOTE | 2019-02-12 09:17 | Pharmacy Report ---
Pharmacist Post D/C Phone Note - Phone Note: Date of phone call: February 12, 2019. The patient and/or patient member services representative(s) were unable to be reached for a follow-up phone call within the 72 hour time frame. Discharge counseling pharmacist contact information has already been provided to the patient should questions arise. Thank you for allowing us to be involved in the care of this patient. - Home Medications: Home Medications Medication Instructions Recorded Confirmed venlafaxine 150 mg PO QAM 02/08/19 02/11/19 New Rx's Medication Instructions Recorded aspirin [Ecotrin Low Strength] 81 mg PO QAM #90 tab 02/09/19 atorvastatin 40 mg PO DAILY #60 tab 02/09/19
== END 2019-02-09 13:29 | disposition home or self-care (01) | DRG 66 ==
LOC: ED 21:32 → OBSVTOIN 02-09 00:36 → SUATTDRO 02-09 00:36 → INTOOBSV 02-09 00:36 → 2S 02-09 00:36

== ENCOUNTER 2019-02-11 12:00 | Observation (INO) ==
--- NOTE | 2019-02-11 12:28 | CT Scan Report ---
CT head/brain wo con CLINICAL HISTORY: 63 years-old Female presenting with Stroke evaluation, strokelike symptoms for 18 h ours, limited right temporal lobe infarct on recent MRI brain. TECHNIQUE: Multidetector CT imaging of the head was performed without the use of intravenous contrast . IV contrast: None. One or more dose lowering techniques were used consistent with the principles of ALARA (as low as reasonably achievable), including automatic exposure control, mA or kV adjustment t o individual patient size, and/or use of iterative reconstruction. COMPARISON: MR brain from 02/09/[address] head from 02/08/2019. CT DOSE (mGy.cm): The estimated cumulative dose is 537.48 mGy.cm. 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 Ventricles and sulci normal in size. No hemorrhage. Brain parenchyma normal in appearance with preser charly salazar-white differentiation. No acute territorial infarct. No mass effect or midline shift. No ext ra-axial fluid collection. Chronic changes of the right orbit. Paranasal sinuses and mastoid air cell s clear. Calvarium intact. IMPRESSION: 1. No acute intracranial abnormality. Electronically signed by: Karthik Santos M.D. 02/11/2019 12:27 PM
[2019-02-11 12:30] LABS: Basophils # (auto) 0.05 K/uL (0-0.2); Basophils % (auto) 0.8 %; Eosinophils % (auto) 1.7 %; Hematocrit (blood only) 42.2 % (37-47); Hemoglobin 14.6 g/dL (12.0-16.0); Immature Granulocytes # (auto) 0.01 K/uL (0.00-0.02); Immature Granulocytes % (auto) 0.2 %; Lymphocytes # (auto) 1.62 K/uL (1.2-3.4); Lymphocytes % (auto) 27.2 %; Mean Corpuscular Hgb Conc 34.6 g/dL (32-36); Mean Corpuscular Volume 88.5 fL (80-100); Mean Platelet Volume 10.6 fL (7.4-10.4); Monocytes # (auto) 0.36 K/uL (0.11-0.59); Neutrophils # (auto) 3.82 K/uL (1.4-6.5); Neutrophils % (auto) 64.1 %; Platelet Count 252 K/uL (130-400); RDW Coefficient of Variation 13.7 % (11.5-14.5); RDW Standard Deviation 44.6 fL (36.4-46.3); Red Blood Count 4.77 M/uL (4.2-5.4); White Blood Count 5.96 K/uL (4.8-10.8)
[2019-02-11 12:38] LABS: Alanine Aminotransferase 21 U/L (12-78); Albumin Level 3.6 gm/dl (3.4-5.0); Aspartate Aminotransferase 12 U/L (15-37); BUN Creatinine Ratio 12.8 (10-20); Blood Urea Nitrogen 13 mg/dl (7-18); Calcium 9.1 mg/dl (8.5-10.1); Carbon Dioxide 26 mmol/L (21-32); Chloride 106 mmol/L (98-107); Creatinine Clr Calc Pharmacy 54.1 ml/min; Est GFR (African American) 70.3; Est GFR (Non-African American) 60.6; Glucose 103 mg/dl (70-99); Potassium 4.3 mmol/L (3.5-5.1); Sodium 138 mmol/L (136-145)
[2019-02-11 12:42] LABS: Partial Thromboplastin Time 26.1 Seconds (21.0-31.0); Prothrombin Time 10.1 Seconds (9.0-12.0)
[2019-02-11 12:43] LABS: Albumin Globulin Ratio 0.9 (0.9-2); Alkaline Phosphatase 114 U/L (45-117); Bilirubin,Total 0.3 mg/dl (0.2-1); Globulin 3.9 gm/dl (2.5-4.0); Total Protein 7.5 gm/dl (6.4-8.2); Troponin I < 0.015 ng/ml (0-0.045)
--- NOTE | 2019-02-11 15:02 | History & Physical Report ---
Date of Service February 11, 2019 Assessment & Plan (1) Stroke-like episode: Skin the patient presents with dysarthria and facial drooping. She now may have some mild very very mild left hand movement issues. Patient will have her aspirin escalated to 325 repeat MRI be undertaken and a neurology consult. Patient relates increased stressors in her life she is been on Effexor for some time she feels this is not helping her anxiety. She is open to taking an additional medication for anxiety. She says in the past she is been on Zoloft and Prozac without much help. She feels her stress is stemming from the recent of her mother and concerns over their living situation (2) Hyperlipidemia: Patient will continue with atorvastatin at 40 (3) Depression: Discussion of whether to add a medicine to the Effexor versus change medicines altogether patient is open to changing medications will initiate low- dose Remeron at night and start de-escalating her Effexor History of Present Illness Primary Care Provider: TOMASZ Villar Patient represented to the ER after requested for primary care physician for possible strokelike symptoms. Patient was discharged from our facility on the after a similar episode where an MRI showed a subacute punctate lesion which neurology did not feel was consistent with her physical symptoms. At that time aspirin and atorvastatin were begun patient had echocardiogram without embolic issues or nadira patent foramen. Patient feels she is back to normal however she is having some mild fine motor movements with her left hand and mild dysmetria [id number] although she is left-handed Patient relates that she feels stress her life is accelerated and its possible this is related to her stress Allergies Allergy/AdvReac Type Severity Reaction Status Date / Time No Known Allergies Allergy Unverified 02/11/19 13:07 Home Medications Home Medications Medication Instructions Recorded Confirmed Type aspirin [Ecotrin Low Strength] 81 mg PO QAM #90 tab 02/09/19 02/11/19 Rx atorvastatin 40 mg PO DAILY #60 tab 02/09/19 02/11/19 Rx citalopram [Celexa] 20 mg PO DAILY #30 tab 02/12/19 Rx clopidogrel [Plavix] 75 mg PO DAILY #30 tab 02/12/19 Rx Past Med/Surg History Medical History Depression Eye cancer Hyperlipidemia MDD (major depressive disorder) Surgical History H/O section H/O umbilical hernia repair S/P cholecystectomy Family History Mother , Mother age 81 of cardiac conditions. 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 She has a artificial right eye No problems with speech or swallowing she feels her speech is improved, likewise her facial droop seems to improve No palpitations, chest pain or pressure No Wheezing or breathing issues No abdominal pain nausea vomiting diarrhea changes in appetite or weight No burning urine urine frequency or changes in color No focal joint pain or muscle pain No skin rashes or oral lesions No unusual bruising or bleeding No focused back pain or numbness or loss of strength No changes in memory or confusion Physical Exam Physical Exam: The patient appeared well nourished she has some disconjugate eye movements due to her artificial eye Vital signs as documented. Head exam is unremarkable. normocephalic, atraumatic oropharynx is clear Neck is without jugular venous distension, thyromegaly, or lymphademopathy Lungs are clear to auscultation and percussion. Cardiac exam reveals Rhythm is regular. First and second heart sounds normal. Abdominal exam reveals normal bowel sounds, no masses, no organomegaly Extremities are nonedematous and both pedal pulses are present Neurologic exam is A&Ox3, no focal deficits, strength is equal bilateral there is some decreased finger-nose on the left and decreased intrinsic hand muscles to the left hand Psychologically seems anxious and voices feeling to me Skin is warm Dry without bruises or lesions Results & Data Vital Signs (Past 12 Hours) Vital Signs Temp Pulse Pulse Resp BP BP Pulse Ox 02/11/19 14:56 78 24 141/88 H 94 02/11/19 13:43 70 16 134/86 97 02/11/19 12:07 36.7 C 90 16 154/103 H 98
[2019-02-11] MEDS ORDERED: ALUMINUM/MAGNESIUM SUSP 30 ML UDC PO PRN (15:59)
[2019-02-11] MEDS ORDERED: PHARMACIST DISCHARGE MED REC CONSULT PRN (15:59)
[2019-02-11] MEDS ORDERED: ONDANSETRON INJ 2 MG/ML 2 ML VIAL IV PRN (15:59)
[2019-02-11] MEDS ORDERED: ACETAMINOPHEN 325 MG TAB PO PRN (15:59)
[2019-02-11] MEDS ORDERED: SODIUM CHLORIDE 0.9% 1000ML 1,000 ML IV SCH (15:59)
[2019-02-11] MEDS ORDERED: LORazepam 0.5 MG TAB PO STA (19:36)
[2019-02-11] MEDS ORDERED: MIRTAZAPINE TAB 15 MG TAB PO SCH (21:00)
[2019-02-11] MEDS: HEPARIN SOD 5,000 UNIT/0.5 ML VIAL SQ SCH (21:18)
--- NOTE | 2019-02-11 21:18 | Magnetic Resonance Report ---
MRI OF THE BRAIN WITHOUT CONTRAST CLINICAL HISTORY: Progressive stroke like symptoms COMPARISON STUDY: 02/09/2019 FINDINGS: Sagittal T1, axial diffusion, proton density and T2 weighted axial, coronal FLAIR, and axial T1-weigh dale images were acquired. No intra or extra-axial mass lesions are visualized There are increasing areas of restricted water diffusion within the right posterior frontal lobe There is no evidence of ventricular dilatation. Proton density T2-weighted and FLAIR images reveal scattered foci of increased T2 signal within the w delbert matter, likely on a small vessel basis. There is also FLAIR edema in the region of the right fro ntal acute stroke. There are no abnormal flow voids. Chronic changes involve the right globe.. IMPRESSION: 1. Interval extension of a right posterior frontal lobe infarct. Electronically signed by: Larry Casillas M.D. 02/11/2019 9:16 PM
[2019-02-12 05:30] LABS: Estimated Average Glucose 114 mg/dl
[2019-02-12 05:40] LABS: Basophils # (auto) 0.03 K/uL (0-0.2); Basophils % (auto) 0.5 %; Eosinophils # (auto) 0.08 K/uL (0-0.5); Eosinophils % (auto) 1.4 %; Hematocrit (blood only) 40.2 % (37-47); Hemoglobin 13.2 g/dL (12.0-16.0); Immature Granulocytes # (auto) 0.01 K/uL (0.00-0.02); Immature Granulocytes % (auto) 0.2 %; Lymphocytes # (auto) 2.19 K/uL (1.2-3.4); Lymphocytes % (auto) 37.6 %; Mean Corpuscular Hgb Conc 32.8 g/dL (32-36); Mean Corpuscular Volume 89.5 fL (80-100); Mean Platelet Volume 10.6 fL (7.4-10.4); Monocytes # (auto) 0.43 K/uL (0.11-0.59); Monocytes % (auto) 7.4 %; Neutrophils # (auto) 3.08 K/uL (1.4-6.5); Neutrophils % (auto) 52.9 %; Platelet Count 209 K/uL (130-400); RDW Coefficient of Variation 13.8 % (11.5-14.5); RDW Standard Deviation 45.4 fL (36.4-46.3); Red Blood Count 4.49 M/uL (4.2-5.4); White Blood Count 5.82 K/uL (4.8-10.8)
[2019-02-12 06:09] LABS: BUN Creatinine Ratio 14.4 (10-20); Calcium 8.6 mg/dl (8.5-10.1); Creatinine Clr Calc Pharmacy 55.3 ml/min; Est GFR (Non-African American) 62.2; Potassium 3.9 mmol/L (3.5-5.1)
--- NOTE | 2019-02-12 08:15 | Neurology Consultation ---
Date of Consultation February 12, 2019 Assessment & Plan (1) Acute CVA (cerebrovascular accident): Patient has an acute posterior right frontal stroke, larger on MRI yesterday then the MRI 3 days previous. There is also some edema around the stroke that was not present as well. This is an extension in the same small area and does not represent a new stroke. She was on 81 milligram aspirin. I view this as a stuttering course of a somewhat small vessel that finally occluded sometime after discharge on the (probably the ). Clinically she is doing well with a definite left facial droop (not present February 09) and some very mild dysarthria. She does not have any other motor or other focal neurologic findings, no meningeal signs, and no encephalopathy. Her blood pressure was quite elevated on admission yesterday which was not the case on her previous admission. She does not have diabetes and was never a cigarette smoker. Her dyslipidemia is stable. MR angiography earlier this week revealed no significant vessel anomalies or stenoses in the head or neck. I spoke with Dr. Wilhelm regarding her most recent and previous MRIs as well as the MR angiography. He believes the MR angiography were good studies and CT angiography would not add anything more to the case (and likely not change treatment). In addition she has mild to moderate old small vessel ischemic change. Echocardiogram earlier this week was unremarkable. (2) Hyperlipidemia: This is mild and she is on pravastatin. (3) Hypertension: Blood pressure was elevated on admission this hospitalization but is markedly improved this morning. (4) Anxiety and depression: Patient has considerable depression and anxiety. She desires to be off venlafaxine, which she takes 150 milligrams each morning. She has been on this dose for 4-5 years. In the past she has apparently tried and failed sertraline and fluoxetine. Recommendations: 1. Add clopidogrel 75 milligrams daily. 2. Change aspirin to 81 milligrams daily and keep together with clopidogrel for 3 weeks, then discontinue aspirin. 3. There is no need for additional neurologic testing including CT angiography of the head or neck. 4. Increase activity slowly and consider physical, occupational, and speech therapy as an outpatient. When discharged, she should avoid strenuous activity for the next 4 weeks and I can follow as an outpatient. 5. Consider the addition of the citalopram 10 milligrams daily for 3 weeks then increase to 20 milligrams each evening. Over the next 2-3 weeks she can taper off Effexor. Otherwise, I would defer her depression and anxiety treatment to her primary care physician. 6. Control blood pressure as you are doing, aiming for a mean arterial pressure of approximately 95. 7. She is essentially a high-dose statin candidate and she is on a good dose of atorvastatin currently. Overall, I spent a total of 80 minutes with this case including review of records, review of MRI films, direct evaluation the patient at bedside, and discussion of the case with the patient at bedside, clinical staff, Dr. Wilhelm, Radiology, and Kayla TOLBERT, including differential diagnosis and treatment options. History of Present Illness Reason for Consultation: Patient is a 63-year-old, who I was asked to see the request of Dr. Wharton, for neurologic consultation regarding stroke. Requesting Physician: Dr. Wharton Attending Physician: Fausto Wharton MD History of Present Illness I first saw this patient February 09 for a small deep right posterior frontal stroke. Clinically she had no neurologic deficits or issues and was discharged on 81 milligram aspirin. MR angiography of the head and neck were unremarkable with no significant vascular anomalies or stenoses. After discharge the patient did well February 09 and February 10. She was stuttering around the house and felt asymptomatic to baseline. In the evening of February 10 she states that her felt that her left face was droopy. He also felt that her speech was somewhat slurred. She did not think so. She got up on the morning of February 11 feeling well but family still noted the left facial droop and slurred speech. She went to outpatient Clinic and they sent her to the emergency room. At 1207 temperature was 36.7, pulse 90 and regular, blood pressure 154/103, and O2 saturation 98 percent Was felt that she had some slurred speech, left facial droop, and some clumsiness of the left hand of a very mild nature. CT scan of the head was unremarkable. CBC and Chem profile were unremarkable as well. Triglycerides were 136, cholesterol 152, LDL 66. MRI of the brain showed an extension of the previous deep posterior right frontal stroke with some edema. It appears to be in the same distribution only larger. The old small vessel ischemic changes are similar to the previous MRI several days ago. Today patient is feeling well with no complaint of pain, headache, weakness, numbness, clumsiness of the hands, shortness of breath, vision problems, chest pain, abdominal pain, dizziness, or left eye vision problems. Blood pressure this morning is 119/78. Patient had been on pravastatin for history of dyslipidemia but she denied any history prior to February 08 hypertension, diabetes, or heart disease. She has never used tobacco products. On February 08 she had whole-body tingling and a reported right facial droop and slurred speech. The patient did not notice this and did not feel weak. She came to the emergency room and her blood pressure was 141/93. Patient believes that she has had increased anxiety and depression. This is due to a number of issues. She has been on the current dose of venlafaxine for the last 4-5 years and wishes to change this medication. Apparently she has tried and failed sertraline and fluoxetine in the past. Allergies Allergy/AdvReac Type Severity Reaction Status Date / Time No Known Allergies Allergy Unverified 02/11/19 13:07 Home Medications Home Medications Medication Instructions Recorded Confirmed Type venlafaxine 150 mg PO QAM 02/08/19 02/11/19 History aspirin [Ecotrin Low Strength] 81 mg PO QAM #90 tab 02/09/19 02/11/19 Rx atorvastatin 40 mg PO DAILY #60 tab 02/09/19 02/11/19 Rx Patient History Medical History Depression Eye cancer Hyperlipidemia MDD (major depressive disorder) Surgical History H/O section H/O umbilical hernia repair S/P cholecystectomy Family History Mother , Mother age 81 of cardiac conditions. 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 Ear, Nose, Mouth, Throat: no ear pain, no tinnitus, no hearing loss and no dysphagia Respiratory: no cough and no dyspnea Cardiovascular: no chest pain, no dyspnea and no palpitations Gastrointestinal: no abdominal pain, no nausea and no vomiting Genitourinary: no dysuria, no urinary frequency and no urinary incontinence Musculoskeletal: no back pain, no neck pain, no radicular pain, no myalgia, no muscle weakness and no muscle atrophy Integumentary: no rash and no lesions Neurologic: no gait abnormality, no falls, no localized weakness, no generalized weakness, no tingling, no numbness, no tremor(s), no abnormal movements, no dizziness, no headache(s), no abnormal speech, no behavioral changes, no confusion and no memory loss Psychiatric: + depression and + anxiety; no abnormal sleep pattern, no difficulty concentrating, no confusion and no hallucinations Endocrine: no fatigue and no flushing Hematologic / Lymphatic: no easy bleeding and no easy bruising Allergy / Immunological: no urticaria Physical Exam Physical Exam: The patient is right-handed. The patient is awake, alert, and attentive. Speech is normal without any aphasia. She may have some very slight dysarthria but she also admits to having loose dentures. Mentation and thought processes are intact, with full orientation and normal fund of knowledge. Attention and concentration are normal. Mood and affect are normal and appropriate. General appearance and grooming are normal. Short and long-term memory are intact. The disc is sharp on the left with positive venous pulsations. The right eye is class. The left pupil is 4 millimeters and reactive to light. Extraocular eye muscles are intact without nystagmus in the left eye. Visual acuity and visual rodriguez seem normal on the right. There are no deficits to sensation in the face in all 3 distributions of the fifth cranial nerve bilaterally. Corneal reflexes are positive bilaterally. There is an obvious facial droop on the left. It does not move well with voluntary smile. Hearing seems intact grossly to voice and finger rub bilaterally. There is poor dentition. Palate moves well without asymmetry. There is normal sternocleidomastoid and trapezius (shoulder shrug) strength bilaterally. Tongue is midline with good strength bilaterally. Neck has a full range of motion without discomfort. There are no cervical bruits bilaterally. There are no cranial or ocular bruits. Heart is without murmur. There is a regular rhythm and rate. Cervical, thoracic, and lumbar spine are nontender to palpation. Gait is narrow based, with good arm swing, turns, and stance. Balance is normal eyes open or closed. The patient can tandem walk without difficulty. The patient can heal and toe walk normally. With outstretched arms there is no drift. There are no resting, postural, or action tremors. There is no ataxia with finger to nose testing. There is good facility in the hands. No other abnormal involuntary movements are noted. I do not see any left upper extremity more hand clumsiness this morning. Motor strength is 5/5 diffusely in the arms bilaterally including deltoids, biceps, triceps, brachioradialis, wrist flexors and extensors, metal flooring installer, and intrinsic hand muscles. Motor strength is 5/5 diffusely in the legs bilaterally including hip flexors, quadriceps, hamstrings, gastrocnemius, tibialis anterior, tibialis posterior, and Peroneii muscles bilaterally. Toe extensors are normal and there is good bulk in the extensor digitorum brevis muscles bilaterally. The limbs have good tone without rigidity or spasticity. There is no atrophy noted in the muscles. Muscle bulk is normal, there is no tenderness to palpation, no myotonia to percussion, and no fasciculations seen. Sensory examination is intact to touch and pin throughout all 4 limbs diffusely. Reflexes are 2/4 in the biceps, triceps, brachioradialis, quadriceps, and Achilles tendons bilaterally. Toes are downgoing with plantar stimulation bilaterally. Peripheral pulses are present and of normal quality distally in all 4 limbs. There is no peripheral edema noted in the limbs. Results & Data Vital Signs (Past 12 Hours) Vital Signs Temp Pulse Pulse Resp BP Pulse Ox 02/12/19 07:27 36.3 C L 18 119/78 93 02/12/19 03:57 36.4 C L 83 16 120/87 95 02/12/19 01:20 74 02/11/19 23:11 36.4 C L 82 16 131/100 91 Diagnostic Findings [facility], [place] [phone] Magnetic Resonance Report Patient: LACEY RIOS AAdmit Date: 02/11/19 MR#: [id number]: [address] Acct ID:[id number]: Date: [address] Zip: [place] [address] Age: 63Location: 2E Sex: F Room/Bed: [facility] Att Phy: Fausto Wharton, MDDiagnosis: STROKE LIKE SYMPTOMS Vicky Phy: Merissa Vasquez CRNPService Date: 02/11/19 Fam Phy: Interpreting Phy: Larry Casillas MD Admit Phy: Fausto Wharton MD Ordering Phy: Fausto Wharton MD cc: ~ MRI OF THE BRAIN WITHOUT CONTRAST CLINICAL HISTORY: Progressive stroke like symptoms COMPARISON STUDY: 02/09/2019 FINDINGS: Sagittal T1, axial diffusion, proton density and T2 weighted axial, coronal FLAIR, and axial T1-weighted images were acquired. No intra or extra-axial mass lesions are visualized There are increasing areas of restricted water diffusion within the right posterior frontal lobe There is no evidence of ventricular dilatation. Proton density T2-weighted and FLAIR images reveal scattered foci of increased T2 signal within the white matter, likely on a small vessel basis. There is also FLAIR edema in the region of the right frontal acute stroke. There are no abnormal flow voids. Chronic changes involve the right globe.. IMPRESSION: 1. Interval extension of a right posterior frontal lobe infarct. Electronically signed by: Larry Casillas M.D. 02/11/2019 9:16 PM
[2019-02-12] MEDS ORDERED: VENLAFAXINE HCL 50 MG TAB PO SCH (09:00)
[2019-02-12] MEDS ORDERED: ATORVASTATIN 40 MG TAB PO SCH (09:00)
[2019-02-12] MEDS ORDERED: ASPIRIN 81 MG ECTAB PO SCH ×2 (09:00)
[2019-02-12] MEDS ORDERED: VENLAFAXINE HCL XR 150 MG CAPXR PO SCH ×2 (09:00)
[2019-02-12] MEDS ORDERED: CLOPIDOGREL BISULFATE 75 MG TAB PO SCH (09:00)
[2019-02-12] MEDS ORDERED: ASPIRIN 325 MG ECTAB PO SCH ×2 (09:00)
[2019-02-12] MEDS: HEPARIN SOD 5,000 UNIT/0.5 ML VIAL SQ SCH (09:28)
[2019-02-12] MEDS ORDERED: STROKE PATIENT DISCHARGE STA (13:40)
--- NOTE | 2019-02-12 14:33 | Pharmacy Report ---
Pharmacist Stroke Counseling - Date of Service February 12, 2019 - Scope: Pharmacy has been consulted to provide medication discharge counseling for this patient admitted with ischemic stroke as per the Pharmacist Discharge Counseling for Stroke Patients Protocol. - Medications on Discharge: New Rx's Medication Instructions Recorded aspirin [Ecotrin Low Strength] 81 mg PO QAM #90 tab 02/09/19 atorvastatin 40 mg PO DAILY #60 tab 02/09/19 citalopram [Celexa] 20 mg PO DAILY #30 tab 02/12/19 clopidogrel [Plavix] 75 mg PO DAILY #30 tab 02/12/19 - Action: The above medications, specifically ones for stroke treatment/prophylaxis, have been reviewed in detail with the patient prior to discharge. This includes indication, common adverse reactions, drug interactions, and medication administration. Medication counseling has been employed using the teach-back method to ensure understanding. - Outcome: The patient has demonstrated understanding of the medications. Please note, they are aware that the pharmacist will call them within 72 hours post-discharge to confirm that the appropriate medications are being taken and answer any further medication related questions the patient might have at that time. Contact information Individual to be contacted: Patient Phone number: [phone] Best time to call: anytime Additional comments: Patient currently on Venlafaxine - discharge instructions say to stop venlafaxine and wait 3 days then to start citalopram. I have instructed patient to contact outpatient prescriber of this change and ask for their instructions for changing medications. I recommended that she take both and cross taper the SNRI to SSRI over 1-4 weeks depending how she is tolerating the change to prevent discontinuation syndrome. Patient understood my recommendations and will call outpatient PCP who prescribes her Venlafaxine. Thank you for allowing pharmacy to be involved in the care of this patient. Please call [phone] or [phone] with any additional questions
--- NOTE | 2019-02-12 17:18 | Discharge Summary ---
Date of Service February 12, 2019 Admission HPI Per Admitting Provider Patient represented to the ER after requested for primary care physician for possible strokelike symptoms. Patient was discharged from our facility on the after a similar episode where an MRI showed a subacute punctate lesion which neurology did not feel was consistent with her physical symptoms. At that time aspirin and atorvastatin were begun patient had echocardiogram without embolic issues or nadira patent foramen. Patient feels she is back to normal however she is having some mild fine motor movements with her left hand and mild dysmetria [id number] although she is left-handed Patient relates that she feels stress her life is accelerated and its possible this is related to her stress Principal Diagnosis Extension of previous CVA Discharge Exam The patient appeared well nourished and normally developed. Vital signs as documented. Head exam is unremarkable. 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 Cardiac exam reveals Rhythm is regular. First and second heart sounds normal. Abdominal exam reveals normal bowel sounds, no masses, no organomegaly Extremities are nonedematous and both pedal pulses are present Neurologic exam is A&Ox3, mild focal deficits have resolved Psychologically seems neither anxious or depressed Skin is warm Dry without bruises or lesions Discharge Data Allergies Allergy/AdvReac Type Severity Reaction Status Date / Time No Known Allergies Allergy Unverified 02/11/19 13:07 Consultations 02/11/19 15:59 Consult Case Management - Discharge Planning Routine Consult Case Management - Discharge Planning Routine Consult Neurology Routine Ordered Studies 02/11/19 12:19 CT head/brain wo con Stat 02/11/19 15:59 MR brain wo con Routine Hospital Course (1) Stroke-like episode: Since the patient presents with dysarthria and facial drooping. Patient had MRI which showed progression of previously small stroke. Neurology did see the recommend 3 weeks overlap of aspirin and Plavix and stop the aspirin continue Plavix and high-dose statin Patient relates increased stressors in her life she is been on Effexor for some time she feels this is not helping her anxiety. She is open to taking an additional medication for anxiety. She says in the past she is been on Zoloft and Prozac without much help. She feels her stress is stemming from the recent of her mother and concerns over their living situation, we will stop her Effexor therapy after gently tapering it in the hospital will begin Celexa therapy on 15 February 20 mg once a day with outpatient follow-up with her physician (2) Hyperlipidemia: Patient will continue with atorvastatin at 40 (3) Depression: Discussion of whether to add a medicine to the Effexor versus change medicines altogether patient is open to changing medications we will hold her Effexor and start new medication as listed above Total Time Total Time Spent Total Time Spent (In Minutes): greater than 30 minutes were required to prepare discharge Discharge Plan Discharge Items Patient Disposition: Home - Self-Care Reason For Visit: STROKE LIKE SYMPTOMS Discharge Diagnosis: stroke depression and anxiety Discharge Goals: Decrease discomfort, Diagnostic testing and Improve disease control Non-emergency contact: Primary Care Provider and Neurologist Call non-emergency contact if: you have any medication questions Follow-up/Referrals: Merissa Vasquez CRNP [Primary Care Provider] - Diet: Heart Healthy Addtl Provider Instructions: please take a baby aspirin daily for three weeks then stop, you will be started on plavix at the time of discharge and this will continue during those three weeks and then beyond to provide protection against further strokes please stop your effexor(venlafexine) and start the new medication for anxiety and depression after three days off effexor, this will be on or about 02/15 Prescriptions: New clopidogrel [Plavix] 75 mg tablet 75 mg PO DAILY Qty: 30 RF: 6 citalopram [Celexa] 20 mg tablet 20 mg PO DAILY Qty: 30 RF: 5 Continued aspirin [Ecotrin Low Strength] 81 mg Tablet,Delayed Release (Dr/Ec) 81 mg PO QAM Qty: 90 RF: 3 atorvastatin 40 mg tablet 40 mg PO DAILY Qty: 60 RF: 6 Discontinued venlafaxine 150 mg capsule,extended release 24hr 150 mg PO QAM RF: 0 Stand-Alone Forms: Medications to Prevent Stroke, [facility] Discharge Orders: Discharge Order (Routine); Ordered 02/12/19 Ordered By: Fausto Wharton Admission Data Admit Date/Time: 02/11/19 14:42 Attending Provider: Fausto Wharton Admit Provider: Fausto Wharton Primary Care Provider: Merissa Vasquez Other Providers: Fabrice Chambers III Service: Telemetry Other Interventions: Discharge Summary Assessment (RN) Last Done: 02/12/19 13:56 DC Date/Time DO NOT enter until pt leaves facility: 02/12/19 14:30
--- NOTE | 2019-02-13 12:11 | Pharmacy Report ---
Pharmacist Post D/C Phone Note - Phone Note: Date of phone call: February 13, 2019. Individual with whom pharmacist spoke to: LACEY RIOS The following questions were reviewed during the phone call with responses listed below each: Can you tell me the medications that you are currently taking as well as when and how you take each medication? -See Table Below When have you missed any doses of your medications? - None, takes them all in the morning. What side effects are you having from your medications, specifically, the new medications you were started on? - feeling a little dizziness in the morning but then feels better after eating. I recommended trialing eating first and then taking medications What questions do you have about your medications? - NONE What problems are you having obtaining your medications? - NONE When is your next appointment with your primary care doctor? - Routine appt in July - case management going to call patient and follow up with scheduling PCP and neuro appts As per the Pharmacist Discharge Counseling for Stroke Patients Protocol, this phone call has been completed within 72 hours of discharge. Thank you for allowing us to be involved in the care of this patient. - Home Medications: New Rx's Medication Instructions Recorded aspirin [Ecotrin Low Strength] 81 mg PO QAM #90 tab 02/09/19 atorvastatin 40 mg PO DAILY #60 tab 02/09/19 citalopram [Celexa] 20 mg PO DAILY #30 tab 02/12/19 clopidogrel [Plavix] 75 mg PO DAILY #30 tab 02/12/19
--- NOTE | 2019-02-13 14:12 | Emergency Department Note ---
Entered by Chayito Rosario acting as a scribe for Ventura Jones MD History of Present Illness General Chief complaint: Stroke/CVA Symptoms Time Seen by Provider: 02/11/19 12:09 Source: patient History of Present Illness Onset (ago): hour(s) (18) Location: face Pain Consistency: + other (episode) Maximum Pain Intensity: 0 Quality: + other (stroke-like symptoms) Associated symptoms: + headaches (resolved) and + other (left-sided facial droop, possible changes in speech) The patient is a 63 year old female that is presenting to the Emergency Room with complaints of an episode of stroke-like symptoms that started 18 hours ago around 1800 last night. The patient reports that her noted some left- sided facial droop first and that her son then confirmed these changes. She states that her stated she had some changes in her speech, but the patient denies feeling like her speech is thick. She states that she was at her PCP for some follow-up care this morning when he noted her facial droop and recommended that she come to the Emergency Room. The patient notes that she was admitted to the hospital a few days ago for a possible stroke and was switched to atorvastatin and aspirin. She is able to read and name common objects on exam. She states that she had a headache last night but notes that it resolved with Advil. Home Medications Home Medications Medication Instructions Recorded Confirmed Type aspirin [Ecotrin Low Strength] 81 mg PO QAM #90 tab 02/09/19 02/11/19 Rx atorvastatin 40 mg PO DAILY #60 tab 02/09/19 02/11/19 Rx citalopram [Celexa] 20 mg PO DAILY #30 tab 02/12/19 Rx clopidogrel [Plavix] 75 mg PO DAILY #30 tab 02/12/19 Rx Allergies Allergy/AdvReac Type Severity Reaction Status Date / Time No Known Allergies Allergy Unverified 02/11/19 13:07 Past Med/Surg History Medical History Depression Eye cancer Hyperlipidemia MDD (major depressive disorder) Surgical History H/O section H/O umbilical hernia repair S/P cholecystectomy Family History Mother , Mother age 81 of cardiac conditions. 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 and A total of 10 systems reviewed and were otherwise negative Physical Exam Vital Signs Vital Signs - 24 hr 02/11/19 12:07 02/11/19 13:43 Temperature 98.1 F Temperature Source Oral Sepsis Recent Fever Within 48 Hours No Sepsis New/Unexplained Change in Mental Status No Sepsis Action Taken by Nursing No Action Required Pulse Rate 90 Pulse Rate [Apical] 70 Respiratory Rate 16 16 Blood Pressure 154/103 H Blood Pressure [Left Arm] 134/86 Blood Pressure Mean 120 Blood Pressure Mean [Left Arm] 102 Pulse Oximetry 98 97 Oxygen Delivery Method Room Air Room Air General: Non-ill appearing middle-aged female in no acute distress. HEENT: Normal cephalic atraumatic. Pupils are equal round and reactive to light. Extraocular movements are intact. Oropharynx is pink with moist mucous membranes. No swelling of the mouth lips or tongue. Neck: Supple with a midline trachea. No meningeal signs or stiffness, no JVD or bruits. No Stridor. Chest: Clear to auscultation bilaterally. No wheezes or rhonchi. No increased w ork of breathing. Heart: regular rate and rhythm. Abdomen: Soft nontender, nondistended without rebound guarding or rigidity. Extremities: No cyanosis clubbing or edema. No calf tenderness or asymmetry Spine/Back. Non tender to palpation. No CVA tenderness Skin: Good turgor without rashes. Neurologic exam: Cranial nerves two through 12 are intact. Motor and sensation are intact and symmetrical throughout. Course 1210:The patient was evaluated in room B12B. A complete history and physical examination was performed. 1236: I discussed the patient's case with Dr. Young, [facility], who suggested that further work up be completed. She agreed that the patient is not a tPA candidate. 1300: I updated the patient on her current lab and imaging results. 1413: I discussed the patient's case with BELKIS Mora, who will evaluate the patient for further management and care. 1420: Upon reevaluation, the patient is resting comfortably. I discussed laboratory and radiographic results with the patient. She verbalized agreement of the treatment plan. The patient will be evaluated for further management and care. Consultations Consultation #1: I discussed the patient's case with Dr. Young, [facility], who suggested that further work up be completed. She agreed that the patient is not a tPA candidate. Time: 12:36 Consultation #2: I discussed the patient's case with BELKIS Mora, who will evaluate the patient for further management and care. Time: 14:13 Administered Medications Discontinued Medications Aspirin (Ecotrin Ectab) 81 mg PO QAM [facility] Stop: 03/14/19 08:59 Last Admin: 02/12/19 09:27 Dose: 81 mg Documented by: [id number] Atorvastatin Calcium (Lipitor) 40 mg PO DAILY ZABRINA Stop: 03/14/19 08:59 Last Admin: 02/12/19 09:28 Dose: 40 mg Documented by: [id number] Clopidogrel Bisulfate (Plavix) 75 mg PO QAM [facility]RINA Stop: 03/14/19 08:59 Last Admin: 02/12/19 09:26 Dose: 75 mg Documented by: [id number] Heparin Sodium (Porcine) (Heparin Sodium (Porcine)) 5,000 units SQ Q12 ZABRINA Stop: 03/13/19 20:59 Last Admin: 02/12/19 09:28 Dose: 5,000 units Documented by: [id number] Cosigned by: [id number] Admin: 02/11/19 21:18 Dose: 5,000 units Documented by: [id number] Cosigned by: [id number] Sodium Chloride (Nss 1000ml) 1,000 mls @ 100 mls/hr IV .Q10H ZABRINA Stop: 02/12/19 01:58 Last Infusion: 02/12/19 05:27 Dose: 0 mls/hr Documented by: [id number] Infusion: 02/11/19 21:29 Dose: 100 mls/hr Documented by: [id number] Infusion: 05/15/19 19:54 Dose: 0 mls/hr Documented by: [id number] Admin: 02/11/19 17:27 Dose: 100 mls/hr Documented by: [id number] Lorazepam (Ativan) 0.5 mg PO NOW STA Stop: 02/11/19 19:37 Last Admin: 02/11/19 19:53 Dose: 0.5 mg Documented by: [id number] Mirtazapine (Remeron) 15 mg PO HS ZABRINA Stop: 03/13/19 20:59 Last Admin: 02/11/19 21:18 Dose: 15 mg Documented by: [id number] Venlafaxine HCl (Effexor) 50 mg PO BID ZABRINA Stop: 03/14/19 08:59 Last Admin: 02/12/19 09:27 Dose: 50 mg Documented by: [id number] Medical Decision Making Differential Diagnosis Differential diagnosis includes: Etiologies such as TIA, CVA, intracranial process, electrolyte or metabolic abnormalities as well as others were entertained. Medical Records Attestation: I reviewed the patient's medical records. Home Medications Current Medication List: was personally reviewed by me Laboratory Data Attestation: I reviewed the patient's lab results. Result diagrams: 02/12/19 05:20 02/12/19 05:20 Lab Results 02/11/19 02/11/19 02/11/19 Range/Units 12:09 12:12 12:12 WBC 5.96 (4.8-10.8) K/uL RBC 4.77 (4.2-5.4) M/uL Hgb 14.6 (12.0-16.0) g/dL Hct 42.2 (37-47) % MCV 88.5 (80-100) fL MCH 30.6 (25-34) pg MCHC 34.6 (32-36) g/dL RDW Std Deviation 44.6 (36.4-46.3) fL RDW Coeff of Melissa 13.7 (11.5-14.5) % Plt Count 252 (130-400) K/uL MPV 10.6 H (7.4-10.4) fL Immature Gran % (Auto) 0.2 % Neut % (Auto) 64.1 % Lymph % (Auto) 27.2 % [place] % (Auto) 6.0 % Eos % (Auto) 1.7 % Baso % (Auto) 0.8 % Immature Gran # (Auto) 0.01 (0.00-0.02) K/uL Neut # (Auto) 3.82 (1.4-6.5) K/uL Lymph # (Auto) 1.62 (1.2-3.4) K/uL [place] # (Auto) 0.36 (0.11-0.59) K/uL Eos # (Auto) 0.10 (0-0.5) K/uL Baso # (Auto) 0.05 (0-0.2) K/uL PT 10.1 (9.0-12.0) Seconds INR 1.0 (0.9-1.1) APTT 26.1 (21.0-31.0) Seconds PTT Ratio 1.0 Sodium (136-145) mmol/L Potassium (3.5-5.1) mmol/L Chloride (98-107) mmol/L Carbon Dioxide (21-32) mmol/L Anion Gap (3-11) BUN (7-18) mg/dl Creatinine (0.6-1.2) mg/dl Est Cr Clr Drug Dosing ml/min Est GFR ( Amer) Est GFR (Non-Af Amer) BUN/Creatinine Ratio (10-20) Glucose (70-99) mg/dl POC Glucose 99 (70-99) Estimat Average Glucose mg/dl Hemoglobin A1c (4.5-5.6) % Calcium (8.5-10.1) mg/dl Magnesium (1.8-2.4) mg/dl Total Bilirubin (0.2-1) mg/dl AST (15-37) U/L ALT (12-78) U/L Alkaline Phosphatase (45-117) U/L Troponin I (0-0.045) ng/ml Total Protein (6.4-8.2) gm/dl Albumin (3.4-5.0) gm/dl Globulin (2.5-4.0) gm/dl Albumin/Globulin Ratio (0.9-2) 02/11/19 02/11/19 Range/Units 12:12 12:12 WBC (4.8-10.8) K/uL RBC (4.2-5.4) M/uL Hgb (12.0-16.0) g/dL Hct (37-47) % MCV (80-100) fL MCH (25-34) pg MCHC (32-36) g/dL RDW Std Deviation (36.4-46.3) fL RDW Coeff of Melissa (11.5-14.5) % Plt Count (130-400) K/uL MPV (7.4-10.4) fL Immature Gran % (Auto) % Neut % (Auto) % Lymph % (Auto) % [place] % (Auto) % Eos % (Auto) % Baso % (Auto) % Immature Gran # (Auto) (0.00-0.02) K/uL Neut # (Auto) (1.4-6.5) K/uL Lymph # (Auto) (1.2-3.4) K/uL [place] # (Auto) (0.11-0.59) K/uL Eos # (Auto) (0-0.5) K/uL Baso # (Auto) (0-0.2) K/uL PT (9.0-12.0) Seconds INR (0.9-1.1) APTT (21.0-31.0) Seconds PTT Ratio Sodium 138 (136-145) mmol/L Potassium 4.3 (3.5-5.1) mmol/L Chloride 106 (98-107) mmol/L Carbon Dioxide 26 (21-32) mmol/L Anion Gap 6.0 (3-11) BUN 13 (7-18) mg/dl Creatinine 0.99 (0.6-1.2) mg/dl Est Cr Clr Drug Dosing 54.1 ml/min Est GFR ( Amer) 70.3 Est GFR (Non-Af Amer) 60.6 BUN/Creatinine Ratio 12.8 (10-20) Glucose 103 H (70-99) mg/dl POC Glucose (70-99) Estimat Average Glucose 114 mg/dl Hemoglobin A1c 5.6 (4.5-5.6) % Calcium 9.1 (8.5-10.1) mg/dl Magnesium 2.0 (1.8-2.4) mg/dl Total Bilirubin 0.3 (0.2-1) mg/dl AST 12 L (15-37) U/L ALT 21 (12-78) U/L Alkaline Phosphatase 114 (45-117) U/L Troponin I < 0.015 (0-0.045) ng/ml Total Protein 7.5 (6.4-8.2) gm/dl Albumin 3.6 (3.4-5.0) gm/dl Globulin 3.9 (2.5-4.0) gm/dl Albumin/Globulin Ratio 0.9 (0.9-2) Imaging Data Radiologist's Impression: Radiology results as stated below per my review and the radiologist's interpretation: CT head/brain wo con CLINICAL HISTORY: 63 years-old Female presenting with Stroke evaluation, strokelike symptoms for 18 hours, limited right temporal lobe infarct on recent MRI brain. TECHNIQUE: Multidetector CT imaging of the head was performed without the use of intravenous contrast. IV contrast: None. One or more dose lowering techniques w ere used consistent with the principles of ALARA (as low as reasonably achievable), including automatic exposure control, mA or kV adjustment to individual patient size, and/or use of iterative reconstruction. COMPARISON: MR brain from 02/09/[address] head from 02/08/2019. CT DOSE (mGy.cm): The estimated cumulative dose is 537.48 mGy.cm. 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 Ventricles and sulci normal in size. No hemorrhage. Brain parenchyma normal in appearance with preserved salazar-white differentiation. No acute territorial infarct. No mass effect or midline shift. No extra-axial fluid collection. Chronic changes of the right orbit. Paranasal sinuses and mastoid air cells clear. Calvarium intact. IMPRESSION: 1. No acute intracranial abnormality. Electronically signed by: Karthik Santos M.D. 02/11/2019 12:27 PM ECG Data Attestation: I personally reviewed and interpreted this ECG as follows: Indication: weakness Rate (beats per minute): 78 Rhythm: normal sinus Findings: + other (some non-specific t-wave abnormalities); no PAC, no PVC, no ST depression, no ST elevation, no acute ischemic change and no ectopy Comparison ECG Date: from (02/08/2019) Change: no significant change Blood Pressure Blood Pressure Findings: Normal blood pressure MDM Narrative This patient comes in as described above. I saw her couple days ago when she had strokelike symptoms and she was admitted. At the time she had MRI which showed a small stroke. Since last night around 6:00 she felt like she had some facial droop on the left which was new and some speech difficulty. She presented to her doctor's office today in the center of the ER. I called another stroke alert. Her symptoms have subsequently gotten better. She is certainly not a TPA candidate at this point given the fact that is been going on for about 18 hours and additionally her symptoms have now gotten better. I am concerned about waxing and waning symptoms. Repeat CAT scan in the ER was unremarkable. EKG does not suggest any significant arrhythmia or acute ischemic changes. She has no acute electrolyte or metabolic abnormalities. I did discuss case with Dr. Diaz and he is going to admit her for further neurologic evaluation and work-up. Impression & Plan TIA (transient ischemic attack) Discharge Plan Visit Data *Final* Discharge Date/Time: 02/11/19 15:50 Chief Complaint: Stroke/CVA Symptoms ED Provider: Ventura Jones Discharge Problem: TIA (transient ischemic attack) Patient Disposition: Admitted As Inpatient Discharge Instructions Interventions: ED Discharge Assessment Last Done: 02/11/19 15:50 The scribe's documentation has been prepared under my direction and personally reviewed by me in its entirety. I confirm that the note above accurately reflects all work, treatment, procedures, and medical decision making performed by me.
== END 2019-02-12 14:30 | disposition home or self-care (01) ==
LOC: 2E 12:00 → ED 12:00 → 2E 15:50